=== PATIENT | male | born 1995 | race American Indian/Alaskan Native ===

== ENCOUNTER 2020-05-11 18:15 | Emergency (ER) | payer SELFPAY ==
[2020-05-11 18:38] VITALS: BP 131/89
[2020-05-11] MEDS ORDERED: OXYMETAZOLINE 0.05% NASAL SPRAY NS ONE (18:41)
--- NOTE | 2020-05-11 18:42 | Emergency Department Report ---
ED ENT HPI - General Chief complaint: Nosebleed Stated complaint: NOSE INJURY Time Seen by Provider: 05/11/20 18:40 Source: patient Mode of arrival: Ambulatory Limitations: No Limitations - History of Present Illness Initial comments: 24-year-old male with no significant past medical history presents to the ER today complaining of nose injury. Patient states that earlier today he was playing basketball when he accidentally ran into a wall and struck his face against the wall. He reports injuring his nose. He states that he bled significantly from from his nose for a few minutes but this has since resolved. He states that he is concerned because his nose appears to be crooked, and thinks is broken and he is unable to breath from nose. He denies any LOC. He reports no other symptoms at this time. MD complaint: epistaxis, trauma/injury -: Sudden - Related Data Previous Rx's Medication Instructions Recorded Last Taken Type Amoxicillin [Trimox CAP] 500 mg PO Q12H #14 capsule 05/11/20 Unknown Rx Ibuprofen [Motrin] 600 mg PO Q8H PRN #30 tablet 05/11/20 Unknown Rx ED Dental HPI - General Chief complaint: Nosebleed Stated complaint: NOSE INJURY Time Seen by Provider: 05/11/20 18:40 Source: patient Mode of arrival: Ambulatory Limitations: No Limitations - Related Data Previous Rx's Medication Instructions Recorded Last Taken Type Amoxicillin [Trimox CAP] 500 mg PO Q12H #14 capsule 05/11/20 Unknown Rx Ibuprofen [Motrin] 600 mg PO Q8H PRN #30 tablet 05/11/20 Unknown Rx ED Review of Systems ROS: Stated complaint: NOSE INJURY Other details as noted in HPI Comment: All other systems reviewed and negative Eyes: denies: eye pain, eye discharge, vision change ENT: epistaxis, other (nose pain, injury ). denies: ear pain, throat pain, dental pain, congestion Gastrointestinal: denies: nausea, vomiting Musculoskeletal: denies: back pain, joint swelling, arthralgia Neurological: denies: headache, weakness, numbness, paresthesias, abnormal gait ED Past Medical Hx - Past Medical History Previous Medical History?: Yes Hx Asthma: Yes - Surgical History Past Surgical History?: Yes Additional Surgical History: LEFT FEMUR HILTON, SCREWS IN LEFT KNEE-2017 - Social History Smoking Status: Never Smoker Substance Use Type: None - Medications Home Medications: Home Medications Medication Instructions Recorded Confirmed Last Taken Type Amoxicillin [Trimox CAP] 500 mg PO Q12H #14 capsule 05/11/20 Unknown Rx Ibuprofen [Motrin] 600 mg PO Q8H PRN #30 tablet 05/11/20 Unknown Rx ED Physical Exam - General Limitations: No Limitations General appearance: alert, in no apparent distress - Head Head exam: Present: atraumatic, normocephalic, normal inspection - Eye Eye exam: Present: normal appearance, PERRL, EOMI Pupils: Present: normal accommodation - ENT ENT exam: Present: normal exam, normal orophraynx, mucous membranes moist, other (Mod ttp bridge of nose with mild deformity; nasal mucosa on left side appears swollen but no obvious septal hematoma noted. No active bleeding from nose. ) - Expanded ENT Exam Expanded Mouth exam: Present: tongue normal. Absent: trismus, muffled voice, laceration - Neck Neck exam: Present: normal inspection, full ROM - Respiratory Respiratory exam: Absent: respiratory distress - Cardiovascular Cardiovascular Exam: Present: regular rate - Neurological Exam Neurological exam: Present: alert, oriented X3, CN II-XII intact, normal gait - Psychiatric Psychiatric exam: Present: normal affect, normal mood - Skin Skin exam: Present: intact ED Course Vital Signs 05/11/20 18:33 Temperature 98.2 F Pulse Rate 86 Respiratory 18 Rate Blood Pressure 131/89 O2 Sat by Pulse 100 Oximetry ED Medical Decision Making - Radiology Data Radiology results: report reviewed [facility] [address] [place] [address] Cat Scan Report Signed Patient: KIT VANEGAS MR#: [id number] : 1995 Acct:[id number] Age/Sex: 24 / M ADM Date: 05/11/20 Loc: ED Attending Dr: Ordering Physician: LISA SANTACRUZ Date of Service: 05/11/20 Procedure(s): CT facial bones wo con Accession Number(s): [id number] cc: LISA SANTACRUZ CT facial bones wo con INDICATION / CLINICAL INFORMATION: 24 years Male; facial injury; nose pain. TECHNIQUE: Thin cut axial images obtained. Sagittal and coronal reconstructions performed. All CT scans at this location are performed using CT dose reduction for ALARA by means of automated exposure control. COMPARISON: None available. FINDINGS: Subcutaneous soft tissue swelling seen in the nasal region. Subtle, nondisplaced fracture seen in the right nasal bone, more superiorly. Subtle nasal bone fracture seen on the left, which may be subacute to chronic in age. There is also a slight angulated fracture of the frontal process of the maxilla on the right-apex lateral, with the more anterior fragment being directed medially. This finding appears to be more acute in age. There is also slight leftward deviation of the nasal bones, bilaterally, with respect to the frontal process of the maxilla, which may be related to old trauma or could be related to more acute injury. This finding could be developmental as well. No definitive signs of nasal septal fracture appreciated. There may be a very subtle, nondisplaced fracture through the left orbital wall- age of this finding is indeterminate. This finding may also represent a very small vascular groove. Mucosal thickening and small air-fluid level seen in the left frontal sinus. Moderate mucosal thickening seen in the ethmoids on the left. IMPRESSION: 1. Facial trauma identified as described above. Signer Name: Elliot Neumann MD, III Signed: 05/11/2020 7:52 PM Workstation Name: [email or web address] Transcribed By: Dictated By: Elliot Neumann MD Electronically Authenticated By: Elliot Neumann MD Signed Date/Time: 05/11/201951 DD/ 41 TD/TT: - Medical Decision Making Pt presented to ED c/o nasal injury after running into a wall while playing basketball. No LOC. CT scan review, showed subtle fractures but some questionable as to whether chronic or new. Pt does admit to facial injury when he was 18 but he does recall if he was told he had fractures. Patient is resting comfortably and he is alert and in no distress. The patient has a normal mental status, has a GCS of 15, and is neurologically intact. The history, exam, diagnostic testing and current condition does not demonstrate signs of basilar skull fracture, clinically significant intracranial injury or cervical trauma. Patient's vital signs have been stable. Discussed CT results with patient. Informed him he needs to f/u with ENT/maxillofacial surgery or plastic surgeon. Informed him that he can call his insurance to get a list of his different doctors. Copy of the CT results was given to patient. He was instructed to not blow his nose. Treatment plan was discussed with patient. The patient condition is stable and appropriate for discharge. Critical care attestation.: If time is entered above; I have spent that time in minutes in the direct care of this critically ill patient, excluding procedure time. ED Disposition Clinical Impression: Nasal fracture, Maxillary fracture Disposition: TO HOME OR SELFCARE Is pt being admited?: No Does the pt Need Aspirin: No Condition: Stable Instructions: Nasal Fracture, [id number] Additional Instructions: Take the pain medication and antibiotic as prescribed. use the afrin ( 1spray in nostril daily - do not use more than 3 days); You can apply ice. Do not blow your nose. Follow-up with the maxillofacial surgeon and or ENT. Return to the ER if your symptoms worsens or changes in any way. Prescriptions: Ibuprofen [Motrin] 600 mg PO Q8H PRN #30 tablet PRN Reason: Pain Amoxicillin [Trimox CAP] 500 mg PO Q12H #14 capsule Referrals: RASHMI JANE MD [Staff Physician] - 3-5 Days [place] SHARMILA SALVADOR MD [Primary Care Provider] - 3-5 Days Time of Disposition: 20:16
--- NOTE | 2020-05-11 19:56 | Cat Scan Report ---
CT facial bones wo con INDICATION / CLINICAL INFORMATION: 24 years Male; facial injury; nose pain. TECHNIQUE: Thin cut axial images obtained. Sagittal and coronal reconstructions performed. All CT scans at this location are performed using CT dose reduction for ALARA by means of automated exposure control. COMPARISON: None available. FINDINGS: Subcutaneous soft tissue swelling seen in the nasal region. Subtle, nondisplaced fracture seen in the right nasal bone, more superiorly. Subtle nasal bone fractu re seen on the left, which may be subacute to chronic in age. There is also a slight angulated fracture of the frontal process of the maxilla on the right-apex lat eral, with the more anterior fragment being directed medially. This finding appears to be more acute in age. There is also slight leftward deviation of the nasal bones, bilaterally, with respect to the frontal process of the maxilla, which may be related to old trauma or could be related to more acute injury. This finding could be developmental as well. No definitive signs of nasal septal fracture appreciated. There may be a very subtle, nondisplaced fracture through the left orbital wall-age of this finding i s indeterminate. This finding may also represent a very small vascular groove. Mucosal thickening and small air-fluid level seen in the left frontal sinus. Moderate mucosal thicken ing seen in the ethmoids on the left. IMPRESSION: 1. Facial trauma identified as described above. Signer Name: Elliot Neumann MD, III Signed: 05/11/2020 7:52 PM Workstation Name: [email or web address]
== END 2020-05-11 20:37 | disposition home or self-care (01) ==
LOC: ED 18:15
DX: S02.401A Maxillary fracture, unspecified side, initial encounter for closed fracture (principal); S02.2XXA Fracture of nasal bones, initial encounter for closed fracture; J45.909 Unspecified asthma, uncomplicated; Z79.899 Other long term (current) drug therapy; Z98.890 Other specified postprocedural states; X58.XXXA Exposure to other specified factors, initial encounter; Y93.67 Activity, basketball; Y92.89 Other specified places as the place of occurrence of the external cause; Y99.8 Other external cause status
CPT/HCPCS: 70486